=== PATIENT | female | born 1950 | race Caucasian/White ===

== ENCOUNTER → 2017-12-28 | Outpatient (CLI) | payer MEDICARE ==
[~2017-12-28] MED LIST: BUPROPION HCL150 MG PO; FLAGYL250 MG PO; INVOKAMET PO; LISINOPRIL2.5 MG PO; LOMOTIL TABLET1 EACH; PROMETHAZINE HC25 M1 PO
--- NOTE | 2017-12-28 19:54 | Diagnostic Imaging Report ---
EXAMINATION: MRI of the brain without contrast. HISTORY: Forgot fullness for the last 2 months, diabetes COMPARISON: None. TECHNIQUE: Sagittal T1 ultrathin slice with coronal and axial reformations; axial DWI, T2, FLAIR, T2 gradient echo. FINDINGS: DEMENTIA: Structural lesion: No intra- or extra-axial mass or hematoma. Ventricles: No hydrocephalus. Bain matter signal intensity: Cortex: Unremarkable. Basal ganglia: Unremarkable. Thalami: Unremarkable. White matter signal intensity: Cerebral: Few scattered white matter T2 and FLAIR hyperintense foci, most likely nonspecific chronic microvascular ischemic changes. Brainstem: Unremarkable. Mamillary bodies/fornices and hippocampi: No atrophy or abnormal signal. Microhemorrhages: None. Atrophy: Global: Symmetric and age-appropriate. Focal: No disproportionate lobar, hippocampal, mesencephalic, pontine, or cerebellar atrophy. Vessels: Expected flow voids present in the major arteries and dural sinuses. Sella: Unremarkable. OTHER: Subarachnoid spaces: No abnormal signal intensity. Foramen magnum: Unremarkable. Skull: Unremarkable. Paranasal / mastoid sinuses: No significant inflammatory disease. IMPRESSION: Mild chronic microvascular ischemic changes, otherwise no intracranial abnormalities, particularly no disproportionate lobar atrophy. Signed by: Dr. Norma Poe M.D. on 12/28/2017 7:51 PM
== END ==
LOC: MRI 13:25
PROVIDERS: ATTEND Specialist
DX: R41.3 Other amnesia (principal)
CPT/HCPCS: 70551